=== PATIENT | male | born 1965 | race American Indian/Alaskan Native ===

== ENCOUNTER 2016-11-16 18:31 | Emergency (ER) | payer SELFPAY ==
[2016-11-16 18:40] VITALS: BP 151/97
--- NOTE | 2016-11-16 20:50 | Emergency Department Report ---
ED ENT HPI - General Chief complaint: Earache Stated complaint: EAR INFECTION/BLOOD Time Seen by Provider: 11/16/16 20:19 Source: patient Mode of arrival: Ambulatory Limitations: No Limitations - History of Present Illness Initial comments: Patient comes into the ER today with complaints of right ear pain and bleeding. Patient states that approximately one week ago he felt like his ear was plugged up and he tried to clean it out with peroxide. Patient states that he did get some wax out but that he continued to have a popping sensation and decreased hearing. He attempted cleaning it out again later in the week and after which this time he noticed some blood that came out of his ear. Patient states that he has not put anything hard into his ear. Patient further notes that he has been having a lot of nasal congestion and sinus pressure over the past couple weeks as well. Patient denies any fever, visual changes. MD complaint: ear pain - Related Data Previous Rx's Medication Instructions Recorded Last Taken Type Amoxicillin 1,000 mg PO BID #40 capsule 11/16/16 Unknown Rx Allergies Allergy/AdvReac Type Severity Reaction Status Date / Time No Known Allergies Allergy Unverified 11/16/16 18:35 ED Dental HPI - General Chief complaint: Earache Stated complaint: EAR INFECTION/BLOOD Time Seen by Provider: 11/16/16 20:19 Source: patient Mode of arrival: Ambulatory Limitations: No Limitations - Related Data Previous Rx's Medication Instructions Recorded Last Taken Type Amoxicillin 1,000 mg PO BID #40 capsule 11/16/16 Unknown Rx Allergies Allergy/AdvReac Type Severity Reaction Status Date / Time No Known Allergies Allergy Unverified 11/16/16 18:35 ED Review of Systems ROS: Stated complaint: EAR INFECTION/BLOOD Other details as noted in HPI Constitutional: denies: chills, fever Eyes: denies: eye pain, eye discharge, vision change ENT: ear pain, hearing loss, congestion. denies: throat pain, epistaxis Respiratory: denies: cough, shortness of breath, wheezing Cardiovascular: denies: chest pain, palpitations Endocrine: no symptoms reported Gastrointestinal: denies: abdominal pain, nausea, diarrhea Genitourinary: denies: urgency, dysuria Musculoskeletal: denies: back pain, joint swelling, arthralgia Skin: denies: rash, lesions Neurological: denies: headache, weakness, paresthesias Psychiatric: denies: anxiety, depression Hematological/Lymphatic: denies: easy bleeding, easy bruising ED Past Medical Hx - Past Medical History Previous Medical History?: Yes Additional medical history: contusion right arm after a fall - Surgical History Past Surgical History?: No - Social History Smoking Status: Never Smoker Substance Use Type: None - Medications Home Medications: Home Medications Medication Instructions Recorded Confirmed Last Taken Type Amoxicillin 1,000 mg PO BID #40 capsule 11/16/16 Unknown Rx ED Physical Exam - General Limitations: No Limitations General appearance: alert, in no apparent distress - Head Head exam: Present: atraumatic, normocephalic - Eye Eye exam: Present: normal appearance, PERRL. Absent: conjunctival injection, periorbital swelling, periorbital tenderness - ENT ENT exam: Present: normal orophraynx, mucous membranes moist, other (bilateral nasal mucosa redness and swelling with left nare not patent secondary to turbinate swelling). Absent: TM's normal bilaterally (right TM erythematous, dull with loss of landmarks and small perforation.), normal external ear exam ( right external auditory canal is swollen, erythematous and tender.) - Neck Neck exam: Present: normal inspection, full ROM. Absent: tenderness, lymphadenopathy - Respiratory Respiratory exam: Present: normal lung sounds bilaterally. Absent: respiratory distress, decreased breath sounds - Cardiovascular Cardiovascular Exam: Present: regular rate, normal rhythm. Absent: systolic murmur, diastolic murmur, rubs, gallop - GI/Abdominal GI/Abdominal exam: Present: soft, normal bowel sounds - Rectal Rectal exam: Present: deferred - Extremities Exam Extremities exam: Present: normal inspection - Back Exam Back exam: Present: normal inspection - Neurological Exam Neurological exam: Present: alert, oriented X3 - Psychiatric Psychiatric exam: Present: normal affect, normal mood - Skin Skin exam: Present: warm, dry, intact, normal color. Absent: rash ED Course Vital Signs 11/16/16 18:36 Temperature 98.6 F Pulse Rate 100 H Respiratory 20 Rate Blood Pressure 151/97 O2 Sat by Pulse 100 Oximetry ED Medical Decision Making - Medical Decision Making Patient is nontoxic and hemodynamically stable. I informed patient that he does have an outer ear infection as well as an ear infection and perforated eardrum. I believe some this may have stemmed from originating in his sinuses. I will refer patient to ENT for further evaluation to ensure healing of eardrum. Patient is in agreement with treatment plan patient is stable for discharge. Critical care attestation.: If time is entered above; I have spent that time in minutes in the direct care of this critically ill patient, excluding procedure time. ED Disposition Clinical Impression: Right acute otitis media, Sinusitis, Acute otitis externa of right ear Acute otitis media with perforated tympanic membrane Qualifiers: Laterality: right Qualified Code(s): H66.91 - Otitis media, unspecified, right ear; H72.91 - Unspecified perforation of tympanic membrane, right ear Disposition: - TO HOME OR SELFCARE Is pt being admited?: No Does the pt Need Aspirin: No Condition: Good Instructions: Otitis Media (ED), Otitis Externa (ED), Sinusitis (ED), Ruptured Eardrum (ED) Prescriptions: Amoxicillin 1,000 mg PO BID #40 capsule Referrals: PRIMARY CARE,MD [Primary Care Provider] - 3-5 Days [facility] [Provider Group] - 3-5 Days Time of Disposition: 20:54
== END 2016-11-16 21:01 | disposition home or self-care (01) ==
LOC: ED 18:31
DX: J32.9 Chronic sinusitis, unspecified (principal); H60.501 Unspecified acute noninfective otitis externa, right ear; H66.91 Otitis media, unspecified, right ear; H72.91 Unspecified perforation of tympanic membrane, right ear
CPT/HCPCS: 99282